=== PATIENT | female | born 1990 | race Hispanic/Latino ===

== ENCOUNTER 2018-06-16 03:36 | Inpatient (IN) | payer OTHER ==
--- NOTE | 2018-06-16 04:14 | C.PDOC ---
History Of Present Illness Patient was medically cleared at [facility] and was accepted in transfer to [facility] psychiatric facility by dr egan. Pt is still depressed Time Seen by Provider: 06/16/18 04:14 Chief Complaint (Nursing): Psychiatric Evaluation History Per: Patient History/Exam Limitations: no limitations Onset/Duration Of Symptoms: Days Current Symptoms Are (Timing): Still Present Suicide/Self Injury Attempted (Context): Other Modifying Factor(s): Other (opioids) Severity: Moderate Pain Scale Rating Of: 4 Associated Symptoms: Depression Involuntary Hold By: None Recent travel outside of the [place]: No Additional History Per: Patient Past Medical History Reviewed: Historical Data, Nursing Documentation, Vital Signs Vital Signs: Last Vital Signs Temp 98.8 F 06/16/18 03:44 Pulse 67 06/16/18 03:44 Resp 20 06/16/18 03:44 BP 151/89 H 06/16/18 03:44 Pulse Ox 98 06/16/18 03:44 Primary Care Provider: Non [facility] Provider, - Medical History PMH: Anxiety, Depression, HTN Family History: States: No Known Family Hx - Social History Hx Alcohol Use: No Hx Substance Use: No - Immunization History Hx Tetanus Toxoid Vaccination: No Hx Influenza Vaccination: No Hx Pneumococcal Vaccination: No Review Of Systems Constitutional: Negative for: Fever, Chills Cardiovascular: Negative for: Chest Pain Respiratory: Negative for: Shortness of Breath Gastrointestinal: Negative for: Abdominal Pain Psych: Positive for: Depression Physical Exam - Physical Exam Appears: Non-toxic, No Acute Distress Skin: Warm, Dry Oral Mucosa: Moist Chest: Symmetrical Cardiovascular: Rhythm Regular Respiratory: No Rales, No Rhonchi, No Wheezing Gastrointestinal/Abdominal: Soft, No Tenderness Back: No CVA Tenderness Extremity: Normal ROM Extremity: Bilateral: Atraumatic Neurological/Psych: Oriented x3 Gait: Steady ED Course And Treatment O2 Sat by Pulse Oximetry: 98 Pulse Ox Interpretation: Normal Disposition Discussed With : Isidro Egan Comment: accepted the pt on his service and took over the care at 4:16 AM Doctor Will See Patient In The: Hospital Counseled Patient/Family Regarding: Studies Performed, Diagnosis - Disposition Disposition: HOSPITALIZED Disposition Time: 04:14 Condition: FAIR Forms: [facility] (Bulgarian) - POA Present On Arrival: None - Clinical Impression Clinical Impression: Major depression, Opioid use disorder Decision To Admit - Pt Status Changed To: Hospital Disposition Of: Inpatient - Admit Certification Admit to Inpatient:: After my assessment, the patient will require hospitalization for at least two midnights. This is because of the severity of symptoms shown, intensity of services needed, and/or the medical risk in this patient being treated as an outpatient. - InPatient: Physician Admission Certification: I certify that this patient requires 2 or more midnights of care for the following reason:: After my assessment, the patient will require hospitalization for at least two midnights. This is because of the severity of symptoms shown, intensity of services needed, and/or the medical risk in this patient being treated as an outpatient. - . Bed Request Type: Psychiatry Admitting Physician: Isidro Egan Patient Diagnosis: Major depression, Opioid use disorder
[2018-06-16] MEDS ORDERED: (Novolin R) Insulin Human Regular 100 units/ml vial SC ONE ×2 (04:21→04:27)
--- NOTE | 2018-06-16 05:14 | PCM.BM ---
<Shira De Santiago - Last Filed: 06/16/18 05:12> Treatment Plan Problems - Problems identified on initial assessmt Hoplessness/Helplessness Date Initiated: 06/16/18 Time Initiated: 05:12 Date resolved: 06/16/18 Assessment reference: NA Status: Active Feeling of Worthessness Date Initiated: 06/16/18 Time Initiated: 05:13 Date resolved: 06/16/18 Assessment reference: NA Status: Active Selfcare Decifit Date Initiated: 06/16/18 Time Initiated: 05:14 Date resolved: 06/16/18 Assessment reference: NA Status: Active Treatment assets and liabiliti Patient Assests: negotiates basic needs Patient Liabilities: poor support system, substance abuse, medical problems - Milieu Protocol Maintain good personal hygiene: daily Encourage regular showers, daily Remind patient to perform daily oral care, daily Assist patient to perform ADL's Conduct patient checks and document Observation sheet: Q15 minutes Maintain personal safety: every shift Educate patient to report safety concerns to staff, every shift Monitor environment for contraband/sharps Medication safety: Monitor for expected outcome, potential side effects: every shift, Assess barriers to learning: every shift, Assess readiness for medication education: every shift <Monica Valdez - Last Filed: 06/17/18 14:27> Family Contact Family involvement: Patient does not wish Family/SO involvement Family contact: Patient declines to allow family contact at present - Goals for Treatment Patient goals for treatment: "I want to go to rehab." Discharge/Continuing Care - Education Needs Education Needs: Patient Medication, Patient Diagnosis/Disease Process, Patient Coping Skills, Patient Placement options, Patient Community resources - Discharge Discharge Criteria: Free of Suicidal thoughts, Normal sleep pattern, Ability to care for self, No longer exhibiting s/s of withdrawal, Reduction of target symptoms Discharge to:: Substance Abuse Rehab - Treatment Team Participation Discussed with Family/SO: No Was Patient/Family/SO present at Treatment Team Meeting: Yes
[2018-06-16] MEDS ORDERED: Sodium Chloride 0.9% 2,000 ML IV ONE (05:35)
[2018-06-16] MEDS ORDERED: (Novolin R) Insulin Human Regular 100 units/ml vial IVP STA (05:35)
[2018-06-16 05:57] LABS: VENOUS BLOOD GAS BASE EXCESS -2.9 mmol/L (0.0-2.0); VENOUS BLOOD GAS PCO2 33 mmHg (40-60); VENOUS BLOOD GAS PO2 53 mm/Hg (30-55); VENOUS BLOOD PH 7.41 (7.32-7.43)
[2018-06-16 06:00] LABS: BASO % 0.7 % (0.0-2.0); EOS % 0.9 % (0.0-4.0); HEMOGLOBIN 10.4 g/dL (11.0-16.0); LYMPH # 1.3 K/uL (1.0-4.3); LYMPH % 24.9 % (20.0-40.0); MEAN CELL VOLUME 76.9 fL (81.0-99.0); MEAN CORPUSCULAR HEMOGLOBIN 24.7 pg (27.0-31.0); MEAN CORPUSCULAR HGB CONC 32.2 g/dL (33.0-37.0); MONO # 0.3 K/uL (0.0-0.8); NEUT # 3.4 K/uL (1.8-7.0); NEUT % 67.5 % (50.0-75.0); RBC 4.22 Mil/uL (3.80-5.20); RED CELL DISTRIBUTION WIDTH 16.3 % (11.5-14.5); WHITE BLOOD COUNT 5.1 K/uL (4.8-10.8)
[2018-06-16 06:16] LABS: ALB/GLOB RATIO 1.4 (1.0-2.1); ALBUMIN 4.3 g/dL (3.5-5.0); ALT/SGPT 11 U/L (9-52); AST/SGOT 16 U/L (14-36); BLOOD UREA NITROGEN 15 mg/dL (7-17); CALCIUM 8.5 mg/dl (8.6-10.4); GFR NON-AFRICAN AMERICAN > 60
[2018-06-16] MEDS ORDERED: (Novolin R) Insulin Human Regular 100 units/ml vial IVP ONE (06:24)
[2018-06-16 07:00] VITALS: O2SAT 100
[2018-06-16] MEDS ORDERED: Aluminum Hydroxide/Magnesium Hydroxide Susp (30 mL) PO PRN (08:29)
[2018-06-16] MEDS: Multiple Vitamins Tab PO SCH (09:40)
--- NOTE | 2018-06-16 09:59 | PCM.PSYCH ---
Initial Psychiatric Evaluation - Initial Psychiatric Evaluation Type of Admission: Voluntary Legal Status: Capacity Chief Complaint (in patient's own words): I was feeling increasingly depressed and suicidal.' History of Present Illness and Precipitating Events: Patient is a 27 years old female, whose currently unemployed, lives with her parents, came to the [facility] with depressed mood and suicidal ideation. She reports history of depression and opioid abuse. She reports past history of one inpatient psychiatric hospitalization, more than 5 years ago. However she denies any history of follow-up with a psychiatrist. She reports abusing up to 10 bags of heroin IV daily basis. Yesterday she abused 5-6 bags of heroin, became increasingly depressed and developed suicidal ideation, so she came to the hospital to get help. She reports depressed mood, feelings of hopelessness and helplessness, poor sleep and poor appetite. She also reports at times irritability, agitation, racing thoughts, poor concentration and anxiety. However she denies any auditory hallucinations or any paranoia. She reports withdrawal symptoms from heroin including nausea, vomiting vomiting, cramps, joint pains, anxiety and headaches. Past medical history DM Current Medications: Active Medications Generic Name Dose Route Start Last Admin Trade Name Freq PRN Reason Stop Dose Admin Al Hydrox/Mg Hydrox/Simethicone 30 ml 06/16/18 08:29 Maalox 30 Ml PO TID PRN Indigestion / Heartburn Clonidine HCl 0.1 mg 06/16/18 08:29 Catapres PO Q4 PRN COWS Score More or Equal to 5 Hydroxyzine HCl 50 mg 06/16/18 08:29 06/16/18 09:40 Atarax PO 50 mg Q6H PRN Administration Anxiety Ibuprofen 600 mg 06/16/18 08:29 Motrin Tab PO Q6 PRN Pain, moderate (4-7) Insulin Aspart 0 unit 06/16/18 11:30 Novolog SC ACHS HERSON Protocol Loperamide HCl 2 mg 06/16/18 08:29 Imodium PO Q8 PRN Diarrhea Multivitamins 1 tab 06/16/18 10:00 06/16/18 09:40 Hexavitamin PO 1 tab DAILY HERSON Administration Ondansetron HCl 4 mg 06/16/18 08:29 Zofran Tab PO Q8 PRN Nausea/Vomiting Pneumococcal Polyvalent Vaccine 0.5 ml 06/19/18 10:00 Pneumovax 23 Vaccine IM 06/19/18 10:01 .ONCE ONE Trazodone HCl 100 mg 06/16/18 08:29 Desyrel PO HS PRN Indigestion Past Psychiatric History - Past Psychiatric History Previous Treatment History: Inpatient Pertinent Medical Hx (Current Medical&Sleep Prob, Allergies): Allergies Allergy/AdvReac Type Severity Reaction Status Date / Time haldol Allergy Uncoded 06/16/18 04:07 Insulin Glargine,Hum.rec.anlog [Basaglar Kwikpen U-100] 100 unit SQ BID 06/16/18 Insulin Lispro [Admelog] 100 unit SQ HS 06/16/18 Review of Systems - Review of Systems All systems: reviewed and no additional remarkable complaints except - Psychiatric Psychiatric: Anxiety, Irritability, Mood Swings, Suicidal Ideation Mental Status Examination - Personal Presentation Personal Presentation: Looks stated age - Affect Affect: Constricted, Depressed - Motor Activity Motor Activity: Calm - Reliability in Providing Information Reliability in Providing Information: Fair - Speech Speech: Organized - Mood Mood: Depressed, Anxious - Formal Thought Process Formal Thought Process: Flight of ideas - Obsessions/Compulsions Obsessions: No Compulsions: No - Cognitive Functions Orientation: Person, Place, Situation, Time Sensorium: Alert Attention/Concentration: Attentive Abstract Thinking: [place] Estimate of Intelligence: Below average Judgement: Imparied, as evidence by: Poor judgement, Imparied, as evidence by: Lack of insight into illness - Risk Risk: Suicidal, Withdrawal, Diminished functioning - Limitations Limitations: Living alone DSM 5 DX - DSM 5 DSM 5 Diagnosis: Bipolar disorder mixed severe without psychotic features Opioid use disorder severe Opioid withdrawal DM - Recommended/Plan of Treatment Treatment Recommendations and Plan of Treatment: Bipolar disorder mixed severe without psychotic features Opioid use disorder severe Opioid withdrawal CBT Supportive therapy Psychoeducation Neurontin for augmentation Methadone taper for opiate withdrawal Withdrawal medications Trazodone for insomnia Hydroxyzine for anxiety Paxil for depression - Smoking Cessation Smoking Cessation Initiated: No
[2018-06-16] MEDS: (Novolog) Insulin Aspart, Recombinant 100 u/ml 10 ml vial SC SCH ×3 (11:49→21:40)
[2018-06-16] MEDS: (Lantus) Insulin Glargine, Recombinant SC SCH ×3 (13:26→21:54)
[2018-06-16 16:35] VITALS: RESP 18
[2018-06-17] MEDS: (Novolog) Insulin Aspart, Recombinant 100 u/ml 10 ml vial SC SCH ×4 (07:59→21:54)
[2018-06-17] MEDS: Multiple Vitamins Tab PO SCH (09:14)
[2018-06-17] MEDS: (Lantus) Insulin Glargine, Recombinant SC SCH ×2 (09:15→21:54)
--- NOTE | 2018-06-17 10:55 | PCM.PYCHPN ---
Psychiatric Progress Note - Psychiatric Progress Note Patient seen today, length of contact: 15 min Patient Chief Complaint: I m feeling increasingly depressed.' Problems Identified/Issues Discussed: Patient was seen and evaluated, chart reviewed and discussed with the staff. Patient reports depressed mood, irritability, agitation and racing thoughts. She reports withdrawal symptoms including cramps, joint pains, anxiety and headaches. She denies any auditory or visual hallucinations or any paranoia. She is taking medication but denies any side effects. Symptoms are improving gradually but she needs to stay longer for further stabilization. Supportive therapy was provided. Medication Change: Yes Medical Record Reviewed: Yes Mental Status Examination - Cognitive Function Orientation: Person, Place, Situation, Time Memory: Intact Attention: WNL Concentration: Poor Association: WNL Fund of Knowledge: Poor - Mood Mood: Depressed, Anxious - Affect Affect: Constricted, Depressed - Speech Speech: Soft - Formal Thought Process Formal Thought Process: Flight of ideas - Suicidal Ideation Suicidal Ideation: No - Homicidal Ideation Homicidal Ideation: No Goal/Treatment Plan - Goal/Treatment Plan Need for Continued Stay: Remain at risks for inpatient hospitalization Progress Toward Problem(s) and Goals/Treatment Plan: Bipolar disorder mixed severe without psychotic features Opioid use disorder severe Opioid withdrawal CBT Supportive therapy Psychoeducation Neurontin for augmentation Methadone taper for opiate withdrawal Withdrawal medications Trazodone for insomnia Hydroxyzine for anxiety Paxil for depression Lamictal for the mood
[2018-06-18] MEDS: (Novolog) Insulin Aspart, Recombinant 100 u/ml 10 ml vial SC SCH ×4 (07:48→22:34)
[2018-06-18] MEDS: Multiple Vitamins Tab PO SCH (09:48)
[2018-06-18] MEDS: (Lantus) Insulin Glargine, Recombinant SC SCH ×2 (09:49→22:31)
--- NOTE | 2018-06-18 16:22 | PCM.PYCHPN ---
Psychiatric Progress Note - Psychiatric Progress Note Patient seen today, length of contact: 15 min Patient Chief Complaint: I am feeling little better. Problems Identified/Issues Discussed: Patient seen, chart reviewed, case discussed with the staff. Issues related to illness and treatment were discussed with the patient and staff. Reported compliant with treatment with no adverse effects. Tolerating treatment very well. Patient reported feeling better. Mood reported as okay. Affect appropriate. Patient's blood sugar is not in control. Will call medicine. Patient needs more time for stabilization. Aftercare discussed with the patient. Denied any delusions, auditory or visual hallucinations, no suicidal ideations or homicidal ideations at the time of evaluation. Medical Problems: Diabetes mellitus Diagnostic Results: Reviewed DSM 5 Symptoms Update: Some improvement with treatment. Medication Change: No Medical Record Reviewed: Yes Consults ordered or reviewed: Medicine consult Mental Status Examination - Cognitive Function Orientation: Person, Place, Situation, Time Memory: Intact Attention: WNL Concentration: WNL Association: WNL Fund of Knowledge: WN Decription of patient's judgement and insights: Fair - Mood Mood: Depressed - Affect Affect: Depressed - Speech Speech: Soft - Formal Thought Process Formal Thought Process: No Impairment Psychotic Thoughts and Behaviors: None - Suicidal Ideation Suicidal Ideation: No - Homicidal Ideation Homicidal Ideation: No Goal/Treatment Plan - Goal/Treatment Plan Need for Continued Stay: Remain at risks for inpatient hospitalization, Discharge may exacerbated symptoms, Severe functional impairment Progress Toward Problem(s) and Goals/Treatment Plan: Patient education. Supportive therapy. CBT for relapse prevention. [facility] for abstinence. Medical consult. Continue rest of the treatment as before. Estimated Date of D/C: 06/22/18 - Smoking Cessation Smoking Cessation Initiated: No
[2018-06-18] MEDS ORDERED: (Novolog) Insulin Aspart, Recombinant 100 u/ml 10 ml vial SC ONE (22:00)
--- NOTE | 2018-06-19 08:12 | CP.PCM.CON ---
<Walter Smyth - Last Filed: 06/19/18 08:44> History of Present Illness - History of Present Illness History of Present Illness: Consult note for Hospitalist Dr. Calixto. 27 F w/ PMhx of IDDM, polysubstance abuse disroder, depression admitted to for depression/polysubstance abuse disorder. Patient is a transfer from [facility]. Pt reports history of 25 bags of IV heroine and occasional cocaine use for several years and detox admissions; however, relapsing recently into drug use. Pt denies suicidal idealization/ depressed mode on admission; however, stated she was for admission for detox. Initially patient reported withdrawal symptoms including nausea, vomiting vomiting, cramps, joint pains, anxiety and headaches; however at time of examination patient denied any complaints. Denies headaches, vision changes, chest pain, SOB, cough, abdominal pain, nausea, vomiting, fevers, chills, diarrhea, constipation. PMD: pt reports new primary doctor 2/2 to insurance change; however does not recall of the the name PMHx: IDDM, polysubstance abuse disorder, depression Meds: analogue ISS, Levamir 25 units AM & PM, adderral 30 mg BID Allergies: Haldol - states she becomes confused PSHx: Denies FHx: Father & Mother healthy & living SHx: IV heroin use approximately 25 bags daily, occasional cocaine use, denies ETOH use, smokes 1/2 pack for 2 years Review of Systems - Constitutional Constitutional: absent: Chills, Fever - EENT Eyes: absent: Blurred Vision, Change in Vision Ears: absent: Ear Discharge, Ear Pain Nose/Mouth/Throat: absent: Nasal Congestion, Nose Pain - Breasts Breasts: absent: Skin Changes - Cardiovascular Cardiovascular: absent: Chest Pain, Chest Pain at Rest - Respiratory Respiratory: absent: Cough, Dyspnea - Gastrointestinal Gastrointestinal: absent: Abdominal Pain, Constipation, Diarrhea - Genitourinary Genitourinary: absent: Change in Urinary Stream, Flank Pain - Musculoskeletal Musculoskeletal: absent: Arthralgias, Myalgias - Integumentary Integumentary: absent: Acne, Alopecia, Sores - Neurological Neurological: absent: Dizziness, Headaches - Hematologic/Lymphatic Hematologic: absent: Easy Bleeding, Easy Bruising Past Patient History - Past Social History Smoking Status: Never Smoked - CARDIAC Hx Hypertension: Yes - ENDOCRINE/METABOLIC Hx Diabetes Mellitus Type 2: Yes - HEMATOLOGICAL/ONCOLOGICAL Hx Hepatitis C: Yes - PSYCHIATRIC Hx Substance Use: Yes Meds Allergies/Adverse Reactions: Allergies Allergy/AdvReac Type Severity Reaction Status Date / Time haldol Allergy Uncoded 06/16/18 04:07 - Medications Medications: Current Medications Al Hydrox/Mg Hydrox/Simethicone (Maalox 30 Ml) 30 ml PO TID PRN PRN Reason: Indigestion / Heartburn Clonidine HCl (Catapres) 0.1 mg PO Q4 PRN PRN Reason: COWS Score More or Equal to 5 Last Admin: 06/18/18 08:14 Dose: 0.1 mg Dicyclomine HCl (Bentyl) 10 mg PO Q6 PRN PRN Reason: Muscle spasm Gabapentin (Neurontin) 300 mg PO TID [facility] Last Admin: 06/18/18 18:07 Dose: 300 mg Hydroxyzine HCl (Atarax) 50 mg PO Q6H PRN PRN Reason: Anxiety Last Admin: 06/18/18 15:44 Dose: 50 mg Ibuprofen (Motrin Tab) 600 mg PO Q6 PRN PRN Reason: Pain, moderate (4-7) Last Admin: 06/18/18 21:22 Dose: 600 mg Insulin Aspart (Novolog) 0 unit SC [facility]; Protocol Last Admin: 06/18/18 22:34 Dose: 4 unit Insulin Glargine (Lantus) 25 unit SC [facility] Last Admin: 06/18/18 22:31 Dose: 25 units Insulin Glargine (Lantus) 25 unit SC DAILY [facility] Last Admin: 06/18/18 09:49 Dose: 25 unit Lamotrigine (Lamictal) 25 mg PO BID [facility] Last Admin: 06/18/18 18:00 Dose: 25 mg Loperamide HCl (Imodium) 2 mg PO Q8 PRN PRN Reason: Diarrhea Methadone HCl (Methadone) 10 mg PO Q24H [facility]; Taper Stop: 06/20/18 13:14 Last Admin: 06/18/18 13:01 Dose: Not Given Multivitamins (Hexavitamin) 1 tab PO DAILY [facility] Last Admin: 06/18/18 09:48 Dose: 1 tab Ondansetron HCl (Zofran Tab) 4 mg PO Q8 PRN PRN Reason: Nausea/Vomiting Paroxetine HCl (Paxil) 10 mg PO DAILY [facility] Last Admin: 06/18/18 09:48 Dose: 10 mg Pneumococcal Polyvalent Vaccine (Pneumovax 23 Vaccine) 0.5 ml IM .ONCE ONE Stop: 06/19/18 10:01 Trazodone HCl (Desyrel) 100 mg PO HS PRN PRN Reason: Indigestion Last Admin: 06/17/18 21:51 Dose: 100 mg Physical Exam - Constitutional Appears: Non-toxic, No Acute Distress - Head Exam Head Exam: NORMAL INSPECTION - Eye Exam Eye Exam: EOMI, Normal appearance - ENT Exam ENT Exam: Mucous Membranes Moist - Respiratory Exam Respiratory Exam: Clear to Auscultation Bilateral, NORMAL BREATHING PATTERN. absent: Rales, Rhonchi, Wheezes - Cardiovascular Exam Cardiovascular Exam: +S1, +S2. absent: Systolic Murmur - GI/Abdominal Exam GI & Abdominal Exam: Normal Bowel Sounds, Soft - Extremities Exam Extremities exam: Positive for: full ROM, normal inspection. Negative for: calf tenderness, pedal edema - Back Exam Back exam: absent: CVA tenderness (L), CVA tenderness (R) - Neurological Exam Neurological exam: Alert, Oriented x3 - Psychiatric Exam Psychiatric exam: Normal Affect, Normal Mood - Skin Skin Exam: Dry, Intact, Normal Color, Warm Results - Vital Signs Recent Vital Signs: Last Vital Signs Temp 98 F 06/18/18 08:19 Pulse 87 06/18/18 15:03 Resp 18 06/18/18 08:12 BP 98/72 L 06/18/18 15:03 Pulse Ox 100 06/16/18 06:59 - Labs Result Diagrams: 06/16/18 05:55 06/18/18 22:36 Labs: Laboratory Results - last 24 hr 06/18/18 06/18/18 06/18/18 11:19 16:03 21:12 POC Glucose (mg/dL) 194 H 148 H > 500 H* Random Glucose 06/18/18 06/19/18 22:36 02:05 POC Glucose (mg/dL) 233 H Random Glucose 557 H* D Assessment & Plan - Assessment and Plan (Free Text) Assessment: 27F w/ PMhx of IDDM, polysubstance abuse disorder, depression admitted for depression/detox consulted for diabetes management, blood sugars in 200s to 400s Plan: Insulin dependent diabetes mellitus - blood sugars 200s to 400s - currently on levamir 25 mg BID - F/u hgA1C - increase ISS to high - accuchecks ACHS - add novolin 70/30 5 units @ 2000 as high sugars primrarily at midnight time frame and need briding between long acting inslin - would consider acei for renal protection; however pt reported previous history of feeling light headed/ becoming hypotensive when on it Polysubstance abuse disorder - history of heroin & cocaine use - currently in 5E - further management per 5E - clondiine 0.1 mg PO Q4 PRN, ibuprofen 600 mg PO q6H PRN, zofran 4 mg Po Q8 PRN, trazodone 100 mg HS pRN, bentyl 10 mg Q6H PRN, paxil 10 mg PO daily, lamictal 25 mg PO BID, gabapentin 300 mg PO TID Ppx - DVT: not indicated as patient is ambulatory <Jacob Calixto - Last Filed: 06/19/18 12:18> Meds - Medications Medications: Current Medications Al Hydrox/Mg Hydrox/Simethicone (Maalox 30 Ml) 30 ml PO TID PRN PRN Reason: Indigestion / Heartburn Clonidine HCl (Catapres) 0.1 mg PO Q4 PRN PRN Reason: COWS Score More or Equal to 5 Last Admin: 06/19/18 08:59 Dose: 0.1 mg Dicyclomine HCl (Bentyl) 10 mg PO Q6 PRN PRN Reason: Muscle spasm Gabapentin (Neurontin) 300 mg PO TID [facility] Last Admin: 06/19/18 10:08 Dose: 300 mg Hydroxyzine HCl (Atarax) 50 mg PO Q6H PRN PRN Reason: Anxiety Last Admin: 06/18/18 15:44 Dose: 50 mg Ibuprofen (Motrin Tab) 600 mg PO Q6 PRN PRN Reason: Pain, moderate (4-7) Last Admin: 06/19/18 08:59 Dose: 600 mg Insulin Aspart (Novolog) 0 unit SC [facility]; Protocol Last Admin: 06/19/18 11:47 Dose: 4 units Insulin Aspart (Novolog Mix 70/30 (70/30 Units/Ml)) 5 units SC Q24H [facility] Insulin Glargine (Lantus) 25 unit SC HS [facility] Last Admin: 06/18/18 22:31 Dose: 25 units Insulin Glargine (Lantus) 25 unit SC DAILY [facility] Last Admin: 06/19/18 10:09 Dose: 25 unit Lamotrigine (Lamictal) 25 mg PO BID [facility] Last Admin: 06/19/18 10:08 Dose: 25 mg Loperamide HCl (Imodium) 2 mg PO Q8 PRN PRN Reason: Diarrhea Methadone HCl (Methadone) 10 mg PO Q24H [facility]; Taper Stop: 06/20/18 13:14 Last Admin: 06/18/18 13:01 Dose: Not Given Multivitamins (Hexavitamin) 1 tab PO DAILY [facility] Last Admin: 06/19/18 10:08 Dose: 1 tab Ondansetron HCl (Zofran Tab) 4 mg PO Q8 PRN PRN Reason: Nausea/Vomiting Paroxetine HCl (Paxil) 10 mg PO DAILY [facility] Last Admin: 06/19/18 10:08 Dose: 10 mg Trazodone HCl (Desyrel) 100 mg PO HS PRN PRN Reason: Indigestion Last Admin: 06/17/18 21:51 Dose: 100 mg Results - Vital Signs Recent Vital Signs: Last Vital Signs Temp 98 F 06/18/18 08:19 Pulse 87 06/18/18 15:03 Resp 18 06/18/18 08:12 BP 98/72 L 06/18/18 15:03 Pulse Ox 100 06/16/18 06:59 - Labs Result Diagrams: 06/19/18 11:18 06/19/18 11:18 Labs: Laboratory Results - last 24 hr 06/18/18 06/18/18 06/18/18 16:03 21:12 22:36 WBC RBC Hgb Hct MCV MCH MCHC RDW Plt Count MPV Neut % (Auto) Lymph % (Auto) [place] % (Auto) Eos % (Auto) Baso % (Auto) Neut # (Auto) Lymph # (Auto) [place] # (Auto) Eos # (Auto) Baso # (Auto) Sodium Potassium Chloride Carbon Dioxide Anion Gap BUN Creatinine Est GFR ( Amer) Est GFR (Non-Af Amer) POC Glucose (mg/dL) 148 H > 500 H* Random Glucose 557 H* D Calcium 06/19/18 06/19/1806/19/19 02:05 07:31 11:18 WBC 3.7 L RBC 4.51 Hgb 11.1 Hct 34.5 MCV 76.6 L MCH 24.6 L MCHC 32.1 L RDW 16.7 H Plt Count 339 MPV 7.8 Neut % (Auto) 50.3 Lymph % (Auto) 38.8 [place] % (Auto) 8.1 Eos % (Auto) 2.3 Baso % (Auto) 0.5 Neut # (Auto) 1.8 Lymph # (Auto) 1.4 [place] # (Auto) 0.3 Eos # (Auto) 0.1 Baso # (Auto) 0.0 Sodium Potassium Chloride Carbon Dioxide Anion Gap BUN Creatinine Est GFR ( Amer) Est GFR (Non-Af Amer) POC Glucose (mg/dL) 233 H 87 Random Glucose Calcium 06/19/18 06/19/18 11:18 11:26 WBC RBC Hgb Hct MCV MCH MCHC RDW Plt Count MPV Neut % (Auto) Lymph % (Auto) [place] % (Auto) Eos % (Auto) Baso % (Auto) Neut # (Auto) Lymph # (Auto) [place] # (Auto) Eos # (Auto) Baso # (Auto) Sodium 136 Potassium 5.2 Chloride 101 Carbon Dioxide 25 Anion Gap 16 BUN 17 Creatinine 0.7 Est GFR ( Amer) > 60 Est GFR (Non-Af Amer) > 60 POC Glucose (mg/dL) 201 H Random Glucose 156 H D Calcium 8.6 Attending/Attestation - Attestation I have personally seen and examined this patient.: Yes I have fully participated in the care of the patient.: Yes I have reviewed all pertinent clinical information: Yes Notes (Text): 06/19/18 12:14 Medical consult: Patient was seen and examined by me. Agree with the above note by the resident The patient was not in any acute distress when I came and saw her with the registered medical assistant We were consulted because she had several night time accuchecks that were > 400. She takes long acting 25 U SQ AM and then in the PM. The high numbers are at night just after the long acting is given so will try patient on 70/30 Novolin only 5 U at night, this will give some coverage until the longer acting insulin starts working. We discussed ACEI/ARB and patient explains that her primary physician had tried that in the past but her BP is so low she was taken off Jacob Calixto
[2018-06-19] MEDS ORDERED: (Novolog) Insulin Aspart, Recombinant 100 u/ml 10 ml vial SC SCH (08:20)
[2018-06-19] MEDS: (Novolog) Insulin Aspart, Recombinant 100 u/ml 10 ml vial SC SCH ×4 (08:23→21:18)
[2018-06-19] MEDS ORDERED: Pneumococcal 23-Valent Vaccine IM ONE (10:00)
[2018-06-19] MEDS: Multiple Vitamins Tab PO SCH (10:08)
[2018-06-19] MEDS: (Lantus) Insulin Glargine, Recombinant SC SCH ×2 (10:09→21:22)
[2018-06-19 11:33] LABS: BASO % 0.5 % (0.0-2.0); EOS # 0.1 K/uL (0.0-0.7); EOS % 2.3 % (0.0-4.0); HEMOGLOBIN 11.1 g/dL (11.0-16.0); LYMPH # 1.4 K/uL (1.0-4.3); LYMPH % 38.8 % (20.0-40.0); MEAN CELL VOLUME 76.6 fL (81.0-99.0); MEAN CORPUSCULAR HEMOGLOBIN 24.6 pg (27.0-31.0); MEAN CORPUSCULAR HGB CONC 32.1 g/dL (33.0-37.0); MEAN PLATELET VOLUME 7.8 fL (7.2-11.7); MONO # 0.3 K/uL (0.0-0.8); MONO % 8.1 % (0.0-10.0); NEUT # 1.8 K/uL (1.8-7.0); NEUT % 50.3 % (50.0-75.0); NRBC % 0.1 % (0.0-2.0); RBC 4.51 Mil/uL (3.80-5.20); RED CELL DISTRIBUTION WIDTH 16.7 % (11.5-14.5); WHITE BLOOD COUNT 3.7 K/uL (4.8-10.8)
[2018-06-19 11:56] LABS: BLOOD UREA NITROGEN 17 mg/dL (7-17); CALCIUM 8.6 mg/dl (8.6-10.4); GFR NON-AFRICAN AMERICAN > 60
[2018-06-19] MEDS ORDERED: (Novolog Mix 70/30) Insulin Aspart/Insulin Aspar 100 units/ml SC SCH (20:00)
[2018-06-20] MEDS: (Novolog) Insulin Aspart, Recombinant 100 u/ml 10 ml vial SC SCH ×4 (08:09→21:17)
--- NOTE | 2018-06-20 09:19 | CP.PCM.PN ---
<Behzad Hargrove - Last Filed: 06/20/18 21:01> Subjective - Date & Time of Evaluation Date of Evaluation: 06/20/18 Time of Evaluation: : - Subjective Subjective: Progress Note for Hospitalist service Patient seen and examined at bedside. She states she has no complaints currently. Objective - Vital Signs/Intake and Output Vital Signs (last 24 hours): Temp Pulse Resp BP Pulse Ox 97.9 F 77 18 135/82 100 06/20/18 05:32 06/20/18 05:32 06/20/18 05:32 06/20/18 05:32 06/16/18 06:59 - Medications Medications: Current Medications Al Hydrox/Mg Hydrox/Simethicone (Maalox 30 Ml) 30 ml PO TID PRN PRN Reason: Indigestion / Heartburn Clonidine HCl (Catapres) 0.1 mg PO Q4 PRN PRN Reason: COWS Score More or Equal to 5 Last Admin: 06/20/18 05:53 Dose: 0.1 mg Dicyclomine HCl (Bentyl) 10 mg PO Q6 PRN PRN Reason: Muscle spasm Last Admin: 06/20/18 08:15 Dose: 10 mg Gabapentin (Neurontin) 300 mg PO TID [facility] Last Admin: 06/19/18 17:09 Dose: 300 mg Hydroxyzine HCl (Atarax) 50 mg PO Q6H PRN PRN Reason: Anxiety Last Admin: 06/20/18 05:53 Dose: 50 mg Ibuprofen (Motrin Tab) 600 mg PO Q6 PRN PRN Reason: Pain, moderate (4-7) Last Admin: 06/20/18 08:15 Dose: 600 mg Insulin Aspart (Novolog) 0 unit SC [facility]; Protocol Last Admin: 06/20/18 08:09 Dose: 2 units Insulin Aspart (Novolog Mix 70/30 (70/30 Units/Ml)) 5 units SC Q24H [facility] Last Admin: 06/19/18 21:00 Dose: 5 unit Insulin Glargine (Lantus) 25 unit SC HS [facility] Last Admin: 06/19/18 21:22 Dose: 25 units Insulin Glargine (Lantus) 25 unit SC DAILY [facility] Last Admin: 06/19/18 10:09 Dose: 25 unit Lamotrigine (Lamictal) 25 mg PO BID [facility] Last Admin: 06/19/18 17:09 Dose: 25 mg Loperamide HCl (Imodium) 2 mg PO Q8 PRN PRN Reason: Diarrhea Methadone HCl (Methadone) 5 mg PO Q24H [facility]; Taper Stop: 06/20/18 13:14 Last Admin: 06/19/18 13:06 Dose: 5 mg Multivitamins (Hexavitamin) 1 tab PO DAILY [facility] Last Admin: 06/19/18 10:08 Dose: 1 tab Ondansetron HCl (Zofran Tab) 4 mg PO Q8 PRN PRN Reason: Nausea/Vomiting Paroxetine HCl (Paxil) 10 mg PO DAILY [facility] Last Admin: 06/19/18 10:08 Dose: 10 mg Trazodone HCl (Desyrel) 100 mg PO HS PRN PRN Reason: Indigestion Last Admin: 06/19/18 21:23 Dose: 100 mg - Labs Labs: 06/19/18 11:18 06/19/18 11:18 - Constitutional Appears: Well, No Acute Distress - Head Exam Head Exam: ATRAUMATIC, NORMOCEPHALIC - Eye Exam Eye Exam: EOMI, PERRL - ENT Exam ENT Exam: Mucous Membranes Moist - Neck Exam Neck Exam: Full ROM. absent: Tenderness - Respiratory Exam Respiratory Exam: NORMAL BREATHING PATTERN. absent: Rhonchi, Wheezes, Respiratory Distress - Cardiovascular Exam Cardiovascular Exam: REGULAR RHYTHM, +S1, +S2 - GI/Abdominal Exam GI & Abdominal Exam: Soft, Normal Bowel Sounds. absent: Guarding, Rigid, Tenderness - Extremities Exam Extremities Exam: absent: Calf Tenderness, Pedal Edema - Back Exam Back Exam: absent: CVA tenderness (L), CVA tenderness (R) - Neurological Exam Neurological Exam: Alert, Awake, Oriented x3 Assessment and Plan - Assessment and Plan (Free Text) Assessment: 27 female with history of IDDM, polysubstance abuse disorder, depression admitted for depression/detox consulted for diabetes management, blood sugars in 200s to 400s Plan: Insulin dependent diabetes mellitus - blood sugars 200s to 400s - currently on Levemir 25 units BID - A1c 9.5 - ISS - accuchecks ACHS - Novolin R 5 units before lunch and before dinner. - would consider acei for renal protection; however pt reported previous history of feeling light headed/ becoming hypotensive when on it - Patient follows with [employer] Dr. Bonner as outpatient, patient should follow up on discharge. Polysubstance abuse disorder - history of heroin & cocaine use - further management per Psychiatry - clondiine 0.1 mg PO Q4 PRN, ibuprofen 600 mg PO q6H PRN, zofran 4 mg Po Q8 GA N, trazodone 100 mg HS pRN, bentyl 10 mg Q6H PRN, paxil 10 mg PO daily, lamictal 25 mg PO BID, gabapentin 300 mg PO TID Prophylaxis - DVT: not indicated as patient is ambulatory Case discussed with Dr. Cora Hargrove, PGY1 <Rusty Shepherd - Last Filed: 06/23/18 18:57> Objective - Vital Signs/Intake and Output Vital Signs (last 24 hours): Temp Pulse Resp BP Pulse Ox 98.6 F 70 18 112/73 100 06/22/18 06:10 06/22/18 06:10 06/22/18 06:10 06/22/18 06:10 06/16/18 06:59 - Labs Labs: 06/19/18 11:18 06/19/18 11:18 Attending/Attestation - Attestation I have personally seen and examined this patient.: Yes I have fully participated in the care of the patient.: Yes I have reviewed all pertinent clinical information, including history, physical exam and plan: Yes
[2018-06-20] MEDS: (Lantus) Insulin Glargine, Recombinant SC SCH (09:37)
[2018-06-20] MEDS: Multiple Vitamins Tab PO SCH (09:38)
--- NOTE | 2018-06-20 12:02 | PCM.PYCHPN ---
Psychiatric Progress Note - Psychiatric Progress Note Patient seen today, length of contact: 15 min Patient Chief Complaint: I m feeling increasingly depressed.' Problems Identified/Issues Discussed: Patient was seen and evaluated, chart reviewed and discussed with the staff. Patient reports depressed mood, irritability, agitation and racing thoughts. She reports withdrawal symptoms including cramps, joint pains, anxiety and headaches. She denies any auditory or visual hallucinations or any paranoia. She is taking medication but denies any side effects. Symptoms are improving gradually but she needs to stay longer for further stabilization. Supportive therapy was provided. Medication Change: No Medical Record Reviewed: Yes Mental Status Examination - Cognitive Function Orientation: Person, Place, Situation, Time Memory: Intact Attention: WNL Concentration: WNL Association: WNL Fund of Knowledge: WNL - Mood Mood: Depressed - Affect Affect: Depressed - Speech Speech: Soft - Formal Thought Process Formal Thought Process: No Impairment - Suicidal Ideation Suicidal Ideation: No - Homicidal Ideation Homicidal Ideation: No Goal/Treatment Plan - Goal/Treatment Plan Need for Continued Stay: Remain at risks for inpatient hospitalization, Discharge may exacerbated symptoms, Severe functional impairment Progress Toward Problem(s) and Goals/Treatment Plan: Bipolar disorder mixed severe without psychotic features Opioid use disorder severe Opioid withdrawal CBT Supportive therapy Psychoeducation Neurontin for augmentation Methadone taper for opiate withdrawal Withdrawal medications Trazodone for insomnia Hydroxyzine for anxiety Paxil for depression Lamictal for the mood Estimated Date of D/C: 06/22/18
[2018-06-20] MEDS: (Novolin R) Insulin Human Regular 100 units/ml vial SC SCH (16:37)
[2018-06-20] MEDS ORDERED: (Novolin R) Insulin Human Regular 100 units/ml vial SC SCH (18:00)
[2018-06-20] MEDS ORDERED: Insulin Detemir 100 units/ml Vial (Levemir) SC SCH (22:00)
[2018-06-21] MEDS: (Novolog) Insulin Aspart, Recombinant 100 u/ml 10 ml vial SC SCH ×4 (08:12→21:22)
[2018-06-21] MEDS: Multiple Vitamins Tab PO SCH (10:13)
--- NOTE | 2018-06-21 10:14 | PCM.PYCHPN ---
Psychiatric Progress Note - Psychiatric Progress Note Patient seen today, length of contact: 15 min Patient Chief Complaint: I m feeling increasingly depressed.' Problems Identified/Issues Discussed: Patient was seen and evaluated, chart reviewed and discussed with the staff. Patient reports depressed mood, irritability, agitation and racing thoughts. She reports withdrawal symptoms including cramps, joint pains, anxiety and headaches. She denies any auditory or visual hallucinations or any paranoia. She is taking medication but denies any side effects. Symptoms are improving gradually but she needs to stay longer for further stabilization. Supportive therapy was provided. Medication Change: No Medical Record Reviewed: Yes Mental Status Examination - Cognitive Function Orientation: Person, Place, Situation, Time Memory: Intact Attention: WNL Concentration: Poor Association: WNL Fund of Knowledge: Poor - Mood Mood: Depressed, Anxious - Affect Affect: Constricted, Depressed - Speech Speech: Appropriate - Formal Thought Process Formal Thought Process: No Impairment - Suicidal Ideation Suicidal Ideation: No - Homicidal Ideation Homicidal Ideation: No Goal/Treatment Plan - Goal/Treatment Plan Need for Continued Stay: Remain at risks for inpatient hospitalization, Discharge may exacerbated symptoms, Severe functional impairment Progress Toward Problem(s) and Goals/Treatment Plan: Bipolar disorder mixed severe without psychotic features Opioid use disorder severe Opioid withdrawal CBT Supportive therapy Psychoeducation Neurontin for augmentation Methadone taper for opiate withdrawal Withdrawal medications Trazodone for insomnia Hydroxyzine for anxiety Paxil for depression Lamictal for the mood Estimated Date of D/C: 06/22/18
[2018-06-21] MEDS: Insulin Detemir 100 units/ml Vial (Levemir) SC SCH (10:18)
--- NOTE | 2018-06-21 10:54 | CP.PCM.PN ---
<Dann Evans - Last Filed: 06/21/18 10:54> Subjective - Date & Time of Evaluation Date of Evaluation: 06/21/18 Time of Evaluation: 10:52 - Subjective Subjective: PGY-1 Medicine progress note for Dr. Shepherd Patient was seen and examined at bedside. No events overnight. Patient's fingerstick glucose was 47 this morning. Patient states that she has not been eating as much in the hospital as she does not like the food. She denies fevers, chills, dizziness, diaphoresis, shortness of breath, chest pain, abdominal pain, nausea, vomiting, diarrhea, or any other complaints. Objective - Vital Signs/Intake and Output Vital Signs (last 24 hours): Temp Pulse Resp BP Pulse Ox 98.9 F 118 H 18 115/72 100 06/21/18 07:01 06/21/18 07:01 06/21/18 07:01 06/21/18 07:01 06/16/18 06:59 - Medications Medications: Current Medications Al Hydrox/Mg Hydrox/Simethicone (Maalox 30 Ml) 30 ml PO TID PRN PRN Reason: Indigestion / Heartburn Clonidine HCl (Catapres) 0.1 mg PO Q4 PRN PRN Reason: COWS Score More or Equal to 5 Last Admin: 06/21/18 04:43 Dose: 0.1 mg Dicyclomine HCl (Bentyl) 10 mg PO Q6 PRN PRN Reason: Muscle spasm Last Admin: 06/20/18 08:15 Dose: 10 mg Gabapentin (Neurontin) 300 mg PO TID [facility] Last Admin: 06/21/18 10:13 Dose: 300 mg Hydroxyzine HCl (Atarax) 50 mg PO Q6H PRN PRN Reason: Anxiety Last Admin: 06/21/18 04:43 Dose: 50 mg Ibuprofen (Motrin Tab) 600 mg PO Q6 PRN PRN Reason: Pain, moderate (4-7) Last Admin: 06/21/18 10:13 Dose: 600 mg Insulin Aspart (Novolog) 0 unit SC [facility]; Protocol Last Admin: 06/21/18 08:12 Dose: Not Given Insulin Detemir (Levemir) 25 unit SC DAILY [facility] Last Admin: 06/21/18 10:18 Dose: 25 units Insulin Detemir (Levemir) 20 unit SC HS [facility] Insulin Human Regular (Novolin R) 5 unit SC ACLD [facility] Last Admin: 06/20/18 16:37 Dose: 5 unit Lamotrigine (Lamictal) 25 mg PO BID [facility] Last Admin: 06/21/18 10:13 Dose: 25 mg Loperamide HCl (Imodium) 2 mg PO Q8 PRN PRN Reason: Diarrhea Multivitamins (Hexavitamin) 1 tab PO DAILY [facility] Last Admin: 06/21/18 10:13 Dose: 1 tab Ondansetron HCl (Zofran Tab) 4 mg PO Q8 PRN PRN Reason: Nausea/Vomiting Paroxetine HCl (Paxil) 10 mg PO DAILY [facility] Last Admin: 06/21/18 10:13 Dose: 10 mg Trazodone HCl (Desyrel) 100 mg PO HS PRN PRN Reason: Indigestion Last Admin: 06/20/18 22:00 Dose: 100 mg - Labs Labs: 06/19/18 11:18 06/19/18 11:18 - Additional Findings Additional findings: - Constitutional Appears: Well, No Acute Distress - Head Exam Head Exam: ATRAUMATIC, NORMOCEPHALIC - Eye Exam Eye Exam: EOMI, PERRL - ENT Exam ENT Exam: Mucous Membranes Moist - Neck Exam Neck Exam: Full ROM. absent: Tenderness - Respiratory Exam Respiratory Exam: NORMAL BREATHING PATTERN. absent: Rhonchi, Wheezes, Respiratory Distress - Cardiovascular Exam Cardiovascular Exam: REGULAR RHYTHM, +S1, +S2 - GI/Abdominal Exam GI & Abdominal Exam: Soft, Normal Bowel Sounds. absent: Guarding, Rigid, Tenderness - Extremities Exam Extremities Exam: absent: Calf Tenderness, Pedal Edema - Back Exam Back Exam: absent: CVA tenderness (L), CVA tenderness (R) - Neurological Exam Neurological Exam: Alert, Awake, Oriented x3 Assessment and Plan - Assessment and Plan (Free Text) Assessment: Patient is a 27 year old female with a past medical history of IDDM, polysubstance abuse disorder, and depression admitted for depression/detox. Medicine consulted for diabetes management. Plan: Insulin-dependent diabetes mellitus type I - Fingertick this morning was 47 - Will decrease to Levemir 20 units HS - Continue Levemir 25 units QD - ISS - Accuchecks ACHS - HbA1c: 9.5 - Novolin R 5 units before lunch and before dinner. - Would consider Acei for renal protection; however pt reported previous history of feeling light headed and becoming hypotensive when taking the medication Polysubstance abuse disorder - History of IV heroin & cocaine use - Clondiine 0.1 mg PO Q4 PRN, ibuprofen 600 mg PO q6H PRN, zofran 4 mg Po Q8 PRN, trazodone 100 mg HS pRN, bentyl 10 mg Q6H PRN, paxil 10 mg PO daily, lamictal 25 mg PO BID, gabapentin 300 mg PO TID - Counselled on drug cessation - Further management per Psychiatry Disposition: Follow up with Room Attendant Dr. Bonner upon discharge. Patient seen and case discussed with attendiing, Dr. Shepherd. Dann Evans., PGY-1 <Rusty Shepherd - Last Filed: 06/23/18 18:57> Objective - Vital Signs/Intake and Output Vital Signs (last 24 hours): Temp Pulse Resp BP Pulse Ox 98.6 F 70 18 112/73 100 06/22/18 06:10 06/22/18 06:10 06/22/18 06:10 06/22/18 06:10 06/16/18 06:59 - Labs Labs: 06/19/18 11:18 06/19/18 11:18 Attending/Attestation - Attestation I have personally seen and examined this patient.: Yes I have fully participated in the care of the patient.: Yes I have reviewed all pertinent clinical information, including history, physical exam and plan: Yes
[2018-06-21] MEDS: (Novolin R) Insulin Human Regular 100 units/ml vial SC SCH ×2 (11:32→17:15)
--- NOTE | 2018-06-21 14:09 | RAD ---
HISTORY: Transfer to another facility COMPARISON: None available. TECHNIQUE: Chest PA and lateral, 2 views FINDINGS: LUNGS: No focal consolidation. Please note that chest x-ray has limited sensitivity for the detection of pulmonary masses. PLEURA: No significant pleural effusion identified. No definite pneumothorax . CARDIOVASCULAR: The cardiomediastinal silhouette appears within normal limits of size. No atherosclerotic calcification present. OSSEOUS STRUCTURES: No acute osseous abnormality identified. VISUALIZED UPPER ABDOMEN: Unremarkable. OTHER FINDINGS: None. IMPRESSION: No acute findings identified.
[2018-06-21] MEDS ORDERED: Insulin Detemir 100 units/ml Vial (Levemir) SC SCH (22:00)
[2018-06-22 06:10] VITALS: BP 112/73; PULSE 70; TEMP 98.6
--- NOTE | 2018-06-22 07:07 | CP.PCM.PN ---
<Behzad Hargrove - Last Filed: 06/22/18 18:21> Subjective - Date & Time of Evaluation Date of Evaluation: 06/22/18 Time of Evaluation: 07:06 - Subjective Subjective: Progress Note for Hospitalist service Patient seen and examined at bedside. Her glucose was 98 this morning. She states she has not been eating as much in the hospital as she normally does. She denies fevers, chills, dizziness, shortness of breath, chest pain, abdominal pain, nausea, vomiting, diarrhea. Objective - Vital Signs/Intake and Output Vital Signs (last 24 hours): Temp Pulse Resp BP Pulse Ox 98.6 F 70 18 112/73 100 06/22/18 06:10 06/22/18 06:10 06/22/18 06:10 06/22/18 06:10 06/16/18 06:59 - Medications Medications: Current Medications Al Hydrox/Mg Hydrox/Simethicone (Maalox 30 Ml) 30 ml PO TID PRN PRN Reason: Indigestion / Heartburn Clonidine HCl (Catapres) 0.1 mg PO Q4 PRN PRN Reason: COWS Score More or Equal to 5 Last Admin: 06/21/18 18:12 Dose: 0.1 mg Dicyclomine HCl (Bentyl) 10 mg PO Q6 PRN PRN Reason: Muscle spasm Last Admin: 06/20/18 08:15 Dose: 10 mg Gabapentin (Neurontin) 300 mg PO TID [facility] Last Admin: 06/21/18 18:12 Dose: 300 mg Hydroxyzine HCl (Atarax) 50 mg PO Q6H PRN PRN Reason: Anxiety Last Admin: 06/21/18 11:34 Dose: 50 mg Ibuprofen (Motrin Tab) 600 mg PO Q6 PRN PRN Reason: Pain, moderate (4-7) Last Admin: 06/21/18 21:25 Dose: 600 mg Insulin Aspart (Novolog) 0 unit SC [facility]; Protocol Last Admin: 06/21/18 21:22 Dose: Not Given Insulin Detemir (Levemir) 25 unit SC DAILY [facility] Last Admin: 06/21/18 10:18 Dose: 25 units Insulin Detemir (Levemir) 20 unit SC [facility] Last Admin: 06/21/18 21:51 Dose: 20 units Insulin Human Regular (Novolin R) 5 unit SC ACLD [facility] Last Admin: 06/21/18 17:15 Dose: Not Given Lamotrigine (Lamictal) 25 mg PO BID [facility] Last Admin: 06/21/18 18:13 Dose: 25 mg Loperamide HCl (Imodium) 2 mg PO Q8 PRN PRN Reason: Diarrhea Multivitamins (Hexavitamin) 1 tab PO DAILY [facility] Last Admin: 06/21/18 10:13 Dose: 1 tab Ondansetron HCl (Zofran Tab) 4 mg PO Q8 PRN PRN Reason: Nausea/Vomiting Paroxetine HCl (Paxil) 10 mg PO DAILY [facility] Last Admin: 06/21/18 10:13 Dose: 10 mg Trazodone HCl (Desyrel) 100 mg PO HS PRN PRN Reason: Indigestion Last Admin: 06/21/18 21:25 Dose: 100 mg - Labs Labs: 06/19/18 11:18 06/19/18 11:18 - Constitutional Appears: Well, No Acute Distress - Head Exam Head Exam: ATRAUMATIC, NORMOCEPHALIC - Eye Exam Eye Exam: EOMI, PERRL - ENT Exam ENT Exam: Mucous Membranes Moist - Neck Exam Neck Exam: Full ROM. absent: Tenderness - Respiratory Exam Respiratory Exam: Clear to Ausculation Bilateral, NORMAL BREATHING PATTERN. absent: Rales, Rhonchi, Wheezes, Respiratory Distress, Stridor - Cardiovascular Exam Cardiovascular Exam: REGULAR RHYTHM, +S1, +S2. absent: Gallop, Rubs, Murmur - GI/Abdominal Exam GI & Abdominal Exam: Soft, Normal Bowel Sounds. absent: Distended, Firm, Guarding, Rigid, Tenderness, Organomegaly - Extremities Exam Extremities Exam: absent: Calf Tenderness, Pedal Edema - Back Exam Back Exam: absent: CVA tenderness (L), CVA tenderness (R) - Neurological Exam Neurological Exam: Alert, Awake, Oriented x3 Assessment and Plan - Assessment and Plan (Free Text) Assessment: 27 year old female with a past medical history of IDDM, polysubstance abuse disorder, and depression admitted for depression/detox. Medicine consulted for diabetes management. Plan: Insulin-dependent diabetes mellitus type I, chronic - Fingertick this morning was 98 - Continue Levemir 20 units HS - Continue Levemir 25 units QD - ISS - Accuchecks ACHS - HbA1c: 9.5 - Would consider Acei for renal protection; however pt reported previous history of feeling light headed and becoming hypotensive when taking the medication Polysubstance abuse disorder - History of IV heroin & cocaine use - Clondiine 0.1 mg PO Q4 PRN, ibuprofen 600 mg PO q6H PRN, zofran 4 mg Po Q8 PRN, trazodone 100 mg HS pRN, bentyl 10 mg Q6H PRN, paxil 10 mg PO daily, lamictal 25 mg PO BID, gabapentin 300 mg PO TID - Counselled on drug cessation - Further management per Psychiatry Disposition: Patient to be discharged to rehab today. Patient advised to follow up with Human Resources Partner Dr. Bonner upon discharge. <Rusty Shepherd - Last Filed: 06/23/18 08:00> Objective - Vital Signs/Intake and Output Vital Signs (last 24 hours): Temp Pulse Resp BP Pulse Ox 98.6 F 70 18 112/73 100 06/22/18 06:10 06/22/18 06:10 06/22/18 06:10 06/22/18 06:10 06/16/18 06:59 - Labs Labs: 06/19/18 11:18 06/19/18 11:18 Attending/Attestation - Attestation I have personally seen and examined this patient.: Yes I have fully participated in the care of the patient.: Yes I have reviewed all pertinent clinical information, including history, physical exam and plan: Yes Notes (Text): Discussed about hypoglycemia with the patient. She states that she doesn't eat much at hospital. she will follow her sugar at home and adjust the dose. she will be following her knot borer. She carries sugar tabs for emergency
[2018-06-22] MEDS: (Novolog) Insulin Aspart, Recombinant 100 u/ml 10 ml vial SC SCH (08:13)
[2018-06-22] MEDS: Insulin Detemir 100 units/ml Vial (Levemir) SC SCH (09:07)
[2018-06-22] MEDS: Multiple Vitamins Tab PO SCH (09:08)
--- NOTE | 2018-06-22 10:35 | PCM.PYCHDC ---
Mental Status Examination - Mental Status Examination Orientation: Person, Place, Situation, Time Memory: Intact Mood: Neutral Affect: Constricted Speech: Soft Attention: WNL Concentration: WNL Association: WNL Fund of Knowledge: WNL Formal Thought Process: No Impairment Description of patient's judgement and insight: good, fair Psychotic Thoughts and Behaviors: denies any AVH Suicidal Ideation: No Current Homicidal Ideation?: No Discharge Summary - Discharge Note Reason for Hospitalization: Patient is a 27 years old female, whose currently unemployed, lives with her parents, came to the [facility] (formerly [facility]) with depressed mood and suicidal ideation. She reports history of depression and opioid abuse. She reports past history of one inpatient psychiatric hospitalization, more than 5 years ago. However she denies any history of follow-up with a psychiatrist. She reports abusing up to 10 bags of heroin IV daily basis. Yesterday she abused 5-6 bags of heroin, became increasingly depressed and developed suicidal ideation, so she came to the hospital to get help. She reports depressed mood, feelings of hopelessness and helplessness, poor sleep and poor appetite. She also reports at times irritability, agitation, racing thoughts, poor concentration and anxiety. However she denies any auditory hallucinations or any paranoia. She reports withdrawal symptoms from heroin including nausea, vomiting vomiting, cramps, joint pains, anxiety and headaches. Laboratory Data: Abnormal Lab Results 06/21/18 06/21/18 06/21/18 09:59 11:17 16:05 POC Glucose (mg/dL) 178 H 350 H 59 L 06/21/18 06/21/18 06/21/18 16:09 16:27 21:19 POC Glucose (mg/dL) 51 L 78 262 H 06/22/18 07:31 POC Glucose (mg/dL) 92 Consultations:: List each consultation separately and include: 1. Reason for request. 2. Findings. 3. Follow-up Summary of Hospital Course include:: 1. Description of specific treatment plan utilized for patients during their course of treatmen. 2. Summarize the time- course for resolution of acute symptoms and/or regressed behaviors. 3. Describe issues identified and worked on during hospitalization. 4. Describe medication utilized. 5. Describe medical problems identified and treated. 6. Reassessment of suicide risk Summary of Hospital Course: Patient is a 27 years old female, whose currently unemployed, lives with her parents, came to the [facility] (formerly [facility]) with depressed mood and suicidal ideation. She reports history of depression and opioid abuse. She reports past history of one inpatient psychiatric hospitalization, more than 5 years ago. However she denies any history of follow-up with a psychiatrist. She reports abusing up to 10 bags of heroin IV daily basis. Yesterday she abused 5-6 bags of heroin, became increasingly depressed and developed suicidal ideation, so she came to the hospital to get help. She reports depressed mood, feelings of hopelessness and helplessness, poor sleep and poor appetite. She also reports at times irritability, agitation, racing thoughts, poor concentration and anxiety. However she denies any auditory hallucinations or any paranoia. She reports withdrawal symptoms from heroin including nausea, vomiting vomiting, cramps, joint pains, anxiety and headaches. Past medical history DM - Final Diagnosis (DSM 5) Condition upon Discharge: FAIR DSM 5: Bipolar disorder mixed severe without psychotic features Opioid use disorder severe Opioid withdrawal Disposition: HOME/ ROUTINE Follow-up Treatment Plan: Bipolar disorder mixed severe without psychotic features Opioid use disorder severe Opioid withdrawal CBT Supportive therapy Psychoeducation Neurontin for augmentation Methadone taper for opiate withdrawal Withdrawal medications Trazodone for insomnia Hydroxyzine for anxiety Paxil for depression Lamictal for the mood Prescriptions/Medication Reconciliation: Gabapentin [Neurontin] 300 mg PO BID #60 cap lamoTRIgine [Lamictal] 25 mg PO BID #60 tab PARoxetine [Paxil] 10 mg PO DAILY #30 tab traZODone [Desyrel] 100 mg PO HS PRN #30 tab PRN Reason: Indigestion - Smoking Cessation Smoking Cessation Medication prescribed: No - Antipsychotic Medications Pt discharged on 2 or more routine antipsychotic medications: No
== END 2018-06-22 11:00 | disposition home or self-care (01) | DRG 430 ==
LOC: C.ER 03:36 → C.5E 04:24
PROVIDERS: ADMIT Psychiatry & Neurology Psychiatry; ATTEND Psychiatry & Neurology Psychiatry
PROC: GZHZZZZ Group Psychotherapy (ICD-10-PCS; principal; 2018-06-16)
PROC: HZ2ZZZZ Detoxification Services for Substance Abuse Treatment (ICD-10-PCS; 2018-06-16)
PROC: HZ52ZZZ Individual Psychotherapy for Substance Abuse Treatment, Cognitive-Behavioral (ICD-10-PCS; 2018-06-16)
PROC: HZ59ZZZ Individual Psychotherapy for Substance Abuse Treatment, Supportive (ICD-10-PCS; 2018-06-16)
PROC: HZ56ZZZ Individual Psychotherapy for Substance Abuse Treatment, Psychoeducation (ICD-10-PCS; 2018-06-16)
PROC: HZ42ZZZ Group Counseling for Substance Abuse Treatment, Cognitive-Behavioral (ICD-10-PCS; 2018-06-16)
PROC: HZ46ZZZ Group Counseling for Substance Abuse Treatment, Psychoeducation (ICD-10-PCS; 2018-06-16)
PROC: GZ58ZZZ Individual Psychotherapy, Cognitive-Behavioral (ICD-10-PCS; 2018-06-16)
PROC: GZ56ZZZ Individual Psychotherapy, Supportive (ICD-10-PCS; 2018-06-16)
DX: F31.63 Bipolar disorder, current episode mixed, severe, without psychotic features (principal); F11.23 Opioid dependence with withdrawal; F14.90 Cocaine use, unspecified, uncomplicated; E11.9 Type 2 diabetes mellitus without complications; F41.9 Anxiety disorder, unspecified; G47.00 Insomnia, unspecified; I10 Essential (primary) hypertension; R45.851 Suicidal ideations; Z79.4 Long term (current) use of insulin